=== PATIENT | male | born 1990 | race African-American/Black ===

== ENCOUNTER 2024-05-28 10:48 | Emergency (ER) | payer SELFPAY ==
[2024-05-28 10:53] VITALS: BP 130/84; PULSE 111; RESP 15; TEMP 36.4; O2SAT 100
[2024-05-28] MEDS: NAPROXEN 500 MG TABLET PO (12:18)
--- NOTE | 2024-05-28 12:57 | ED.BACK ---
HPI - Back Pain/Injury General Chief Complaint: Back Pain/Injury Stated Complaint: back pain Time Seen by Provider: 05/28/24 11:55 Source: patient Mode of arrival: ambulatory Limitations: no limitations History of Present Illness HPI Narrative: This is a 34-year-old male, with no significant past medical history, presents to the emergency department complaining of back pain. The patient states his work involves heavy lifting and awkward positions. Over the past week, he has developed sore and dull low back pain rated 4 to 5/10. He denies associated fevers, chills, loss of sensation in the groin, loss of bowel or bladder control or trauma. He has no other complaints at this time. Related Data Allergies Allergy/AdvReac Type Severity Reaction Status Date / Time No Known Allergies Allergy Verified 05/28/24 10:49 Review of Systems Review of Systems: All systems reviewed & are unremarkable except as noted in HPI and below PMFSH Past Medical History Medical History No significant past medical history Surgical History Surgical History No significant past surgical history Social History Social History Smoking status: Never smoker Alcohol intake: current Substance use: never Exam Narrative: GENERAL: Well-developed, well-nourished, and in no acute distress. HEAD: Normocephalic, atraumatic. EYES: PERRLA and EOMI. CHEST: Clear to auscultation. No respiratory distress. No wheezes rales or rhonchi HEART: Regular rate and rhythm. No murmur heard. Normal peripheral pulses. BACK: No midline spine tenderness to palpation, no step-off or crepitus. There is mild paraspinal muscle spasm noted from approximately L2 to L5 EXTREMITIES: Normal range of motion. No edema. SKIN: Warm, dry, no rash. NEURO: Alert and oriented x3. No focal deficit. Moving all 4 limbs spontaneously PSYCH: Normal mood and affect. Course Course Emergency Course: 12:30 - The patient's exam is not concerning for fracture. I suspect muscle spasm it from recurrent heavy lifting. Will discharge with muscle relaxers, lidocaine patches, RICE therapy and recommendation for primary care follow-up. I discussed the findings and recommendations with the patient. Discussed return and emergency precautions including signs/symptoms of cauda equina and epidural abscess. The patient voiced understanding and agreement with the plan. All questions answered to his satisfaction. Vital Signs Vital signs: Vital Signs Temperature 97.6 F 05/28/24 10:53 Pulse Rate 111 H 05/28/24 10:53 Respiratory Rate 15 05/28/24 10:53 Blood Pressure 130/84 05/28/24 10:53 Pulse Oximetry 100 05/28/24 10:53 Temperature 97.6 F 05/28/24 10:53 Pulse Rate 111 H 05/28/24 10:53 Respiratory Rate 15 05/28/24 10:53 Blood Pressure 130/84 05/28/24 10:53 Pulse Oximetry 100 05/28/24 10:53 MDM - Back Pain/Injury MDM Narrative Medical decision making narrative: Plan: Pain control, home physical therapy, primary care follow-up Differential Diagnosis Differential diagnosis: Likely strain of lumbar region and other (Arthritis, degenerative disc disease, other) Discharge Plan Discharge Clinical Impression: Strain of lumbar region Qualifiers: Encounter type: initial encounter Qualified Code(s): S39.012A - Strain of muscle, fascia and tendon of lower back, initial encounter Low back pain Qualifiers: Chronicity: acute Back pain laterality: midline Sciatica presence: without sciatica Qualified Code(s): M54.50 - Low back pain, unspecified Patient Disposition: Home, Self-Care Condition: Stable Instructions: Antibiotic Form, Acute Low Back Pain (ED) Additional Instructions: You were seen in the emergency department. I recommend following up with a primary care doctor. If you develop
== END 2024-05-28 13:20 | disposition home or self-care (01) ==
PROVIDERS: Emergency Provider Preventive Medicine Aerospace Medicine
DX: S39.012A Strain of muscle, fascia and tendon of lower back, initial encounter (principal); X50.0XXA Overexertion from strenuous movement or load, initial encounter
CPT/HCPCS: 99283; A9270